=== PATIENT | female | born 1990 | race Two or more races ===

== ENCOUNTER 2024-05-24 10:47 | Emergency (ER) | payer BC, SELFPAY ==
[2024-05-24 11:14] VITALS: BP 122/79; PULSE 103; RESP 16; TEMP 36.9; O2SAT 100; BMI 28.0
--- NOTE | 2024-05-24 11:18 | XR_ITS ---
Examination: Complete OB ultrasound, less than 14 weeks, transabdominal Date and time of exam: May 24, 2024 1226 hours INDICATIONS: Vaginal discharge 3 days with lower back and pelvic pain Technique: Obstetrical ultrasound images less than 14 weeks performed via transabdominal imaging Findings: Uterus 10.6 x 4.7 x 7.3 cm anteverted Intrauterine gestational sac 1.3 cm corresponds to 6 weeks 1 day gestational age No pole, no cardiac activity Right ovary 3.6 x 1.6 x 2.4 cm arterial flow Left ovary 3.1 x 1.8 x 3.3 cm arterial flow 18 mm cyst IMPRESSION: Empty intrauterine gestational sac corresponding to 6 weeks 1 day gestational age Recommend transvaginal pelvic sonography follow-up to confirm viability
[2024-05-24 11:45] LABS: Collection Type, Urine Clean Catch
[2024-05-24 11:53] LABS: Basophils % (Auto) 0 % (0-2.5); Eosinophils # (Auto) 0.1 Thou/mm3 (0.0-0.5); Eosinophils % (Auto) 1 % (0-10); Hematocrit 29.4 % (36.0-46.0); Hemoglobin 9.7 g/dL (12.0-16.0); Immature Granulocytes % (Auto) 0 % (0-0); Immature Granulocytes Auto 0.01 Thou/mm3 (0.00-0.00); Lymphocytes # (Auto) 0.4 Thou/mm3 (1.0-4.8); Lymphocytes % (Auto) 8 % (10-50); Mean Corpuscular Hemoglobin 33.1 pg (25.0-35.0); Mean Corpuscular Volume 100 fL (80-100); Monocytes # (Auto) 0.2 Thou/mm3 (0.0-0.8); Monocytes % (Auto) 4 % (0-12); Neutrophils # (Auto) 4.9 Thou/mm3 (1.8-7.7); Neutrophils % (Auto) 87 % (37-80); Nucleated Red Blood Cell % 0 /100 WBC (0); Platelet Count 392 Thou/mm3 (140-440); RDW Standard Deviation 54.4 fL (36.4-46.3); Red Blood Count 2.93 Miln/mm3 (4.00-5.20); White Blood Count 5.7 Thou/mm3 (3.6-11.0)
[2024-05-24 12:05] LABS: Bacteria,Urine Rare; Bilirubin,Urine Negative (Negative); Blood,Urine 1+ (Negative); Clarity,Urine Clear (Clear/Hazy); Color,Urine Lt-Yellow (Lt Yel-Yel); Culture Indicated,Urine Not Indicated; Glucose, Urine Negative (Negative); Hyaline Casts,Urine < 1 /hpf (0-1); Ketones,Urine Negative (Negative); Leukocyte Esterase,Urine Positive (Negative); Nitrite,Urine Negative (Negative); Protein,Urine Negative (Neg - Trace); RBC,Urine 3 /hpf (0-3); Specific Gravity,Urine 1.015 (1.001-1.035); Squamous Epithelial Cell,Urine 3 /hpf (0-5); Urobilinogen,Urine Negative mg/dL (0.0-1.0); WBC,Urine 3 /hpf (0-5)
[2024-05-24 12:40] LABS: Alanine Aminotransferase 9 U/L (10-49); Albumin, Serum 4.8 gm/dL (3.5-5.0); Albumin/Globulin Ratio 1.5 (1.2-2.2); Alkaline Phosphatase 64 U/L (46-116); Anion Gap 6 (7-16); Aspartate Amino Transferase 11 U/L (0-34); BUN/Creatinine Ratio 19 Ratio (12-20); Beta HCG,Quantitative 8726 mIU/mL (<5.0); Bilirubin,Total 1.1 mg/dL (0.3-1.2); Blood Urea Nitrogen 13 mg/dL (9-23); Calcium 9.4 mg/dL (8.3-10.6); Calcium (Corrected) 9.4 mg/dL (8.5-10.1); Carbon Dioxide 27.9 mMol/L (20.0-31.0); Chloride 105 mMol/L (98-107); Creatinine (Component) 0.7 mg/dL (0.6-1.3); Estimated Creatinine Clearance 110.5 mL/min (>60); Globulin 3.1 gm/dL (2.3-3.5); Glucose 78 mg/dL (74-106); Osmolality,Calculated 276 (275-295); Potassium 3.8 mMol/L (3.4-5.1); Sodium 139 mMol/L (136-145); Total Protein 7.9 gm/dL (5.7-8.2); eGFR > 60 See Note
--- NOTE | 2024-05-24 13:29 | PD.EDFMALE ---
ED Female Urogenital RME/HPI General Chief complaint: Urogenital-Female Stated complaint: BROWN DISCHARGE W/ PELVIC PAIN ; 8WKS PREG Time Seen by Provider: 05/24/24 10:52 Arrival date/time: 05/24/24 10:47 33-year-old female presents emergency department complains of brown discharge and pelvic pain patient reports being approximately 8 weeks Limitations: no limitations Related Data Previous Rx's ?Medication ?Instructions ?Recorded ibuprofen 600 mg tablet (IBU) 600 mg PO TID PRN pain #30 tabs 01/04/18 acetaminophen 500 mg tablet 500 mg PO Q6H PRN pain #60 tabs 09/22/21 (Tylenol Extra Strength) Allergies Allergy/AdvReac Type Severity Reaction Status Date / Time No Known Allergies Allergy Verified 05/24/24 10:50 Review of Systems Review of Systems Systems Reviewed: All systems reviewed, normal except as documented Constitutional Constitutional: Reports system reviewed and no additional complaints, except as documented, Denies fever(s) and Denies headache(s) Eyes Eyes: Reports system reviewed and no additional complaints, except as documented and Denies blurry vision ENT Ears, Nose, Mouth, and Throat: Reports system reviewed and no additional complaints, except as documented, Denies headache(s), Denies nasal congestion and Denies nasal discharge Cardiovascular Cardiovascular: Reports system reviewed and no additional complaints, except as documented, Denies chest pain and Denies dyspnea Respiratory Respiratory: Reports system reviewed and no additional complaints, except as documented, Denies chest congestion, Denies cough and Denies dyspnea Gastrointestinal Gastrointestinal: Reports system reviewed and no additional complaints, except as documented and Denies abdominal pain Genitourinary Genitourinary: Reports system reviewed and no additional complaints, except as documented and Reports abnormal vaginal bleeding Integumentary/Breasts Skin/Breast: Reports system reviewed and no additional complaints, except as documented and Denies rash Neurologic Neurologic: Reports system reviewed and no additional complaints, except as documented, Reports as per HPI and Denies headache(s) Past Medical History Past Medical History NEUROLOGIC: Negative Neurological Disorders CARDIAC: Negative Cardiac Disorders ED Exam General Limitations: Present no limitations General appearance: Present alert and in no apparent distress Head Head exam: Present atraumatic, normocephalic and normal inspection Eye Eye exam: Present normal appearance, PERRL and EOMI; Absent conjunctival injection ENT ENT exam: Present normal exam, normal oropharynx and mucous membranes moist Neck Neck exam: Present normal inspection, full ROM and trachea midline Chest Chest inspection: Present normal inspection and symmetric chest wall rise Respiratory Respiratory exam: Present normal lung sounds bilaterally; Absent respiratory distress Cardiovascular Cardiovascular exam: Present regular rate, normal rhythm and normal heart sounds Abdominal Exam Abdominal exam: Present soft and normal bowel sounds; Absent distention, tenderness, guarding, rebound or rigidity Extremities Exam Extremities exam: Present normal inspection and full ROM Back Exam Back exam: Present normal inspection and full ROM Neurological Exam Neurological exam: Present alert, oriented X3 and CN II-XII intact Psychiatric Psychiatric exam: Present normal affect and normal mood Skin Skin exam: Present warm, dry, intact and normal color Course Quality Measures none Orders Category Date Time Status US OB <= 14 weeks fetus Stat Exams 05/24/24 11:18 Completed ABO/RH Type Stat Lab 05/24/24 11:35 Completed Beta HCG,Quantitative Stat Lab 05/24/24 11:35 Completed CBC Stat Lab 05/24/24 11:35 Completed Chlamydia/GC/TV - PCR Stat Lab 05/24/24 11:35 Completed Comprehensive Metabolic Panel Stat Lab 05/24/24 11:35 Completed UA, C/S IF [Urinalysis, C/S if Indicated] Stat Lab 05/24/24 11:35 Completed Vital Signs Vital signs: Vital Signs Temperature 98.4 F 05/24/24 11:14 Pulse Rate 103 H 05/24/24 11:14 Respiratory Rate 16 05/24/24 11:14 Blood Pressure 122/79 05/24/24 11:14 Pulse Oximetry (%) 100 05/24/24 11:14 Oxygen Delivery Method Room Air 05/24/24 11:14 O2 saturation 100% room air within normal limits Urogenital - Female MDM Narrative MDM Narrative:: 33-year-old female presents emergency department complains of brown discharge and pelvic pain patient reports being approximately 8 weeks On exam patient well-appearing patient does not appear ill or toxic and in no acute distress Lab work as well as ultrasound obtained Explained to the patient she needs to have repeat ultrasound and lab work on Tuesday for worsening symptoms return immediately Patient data External records reviewed:: [facility] previous records Clinical information provided by:: patient Social determinants that could affect healthcare access:: none Patient has the following chronic illnesses:: None How is presenting disease/condition affected by chronic disease/condition?: no chronic disease Evaluation data The following diagnostics were reviewed and interpreted by me:: lab results and radiology exam(s) Lab and/or radiology exams considered but not ordered:: Labs radiology obtain Interpretation Summary: Reviewed by me Medications / Prescriptions Medications or Prescriptions considered but not ordered:: Given Medication administrations:: Given Consultations Consultation(s) initiated? (list below): No Diagnosis Urogenital Female Differential Diagnosis: urinary tract infection, cystitis and other (Threatened , missed ) Most likely diagnosis given after review of the tests above:: Threatened Admission Indicated Admission indicated?: not indicated Admission Request Was there a request for admission?: No Disposition Plan Disposition Plan: Discharge Discharge Attestation Discharge Attestation: The patient and all family members were given an opportunity to ask questions and understood the discharge instructions. Discharge instructions specifically effects, indications for sooner follow up or return to the emergency department, and the expected course of current diagnosis. Patient condition: Stable Discharge Plan Plan Patient Disposition: HOME (Self Care) Disposition Comment: Stable Prescriptions/Referrals Prescriptions/Med Rec: No Action ibuprofen [IBU] 600 mg tablet 600 mg PO TID PRN (Reason: pain) Qty: 30 0RF acetaminophen [Tylenol Extra Strength] 500 mg tablet 500 mg PO Q6H PRN (Reason: pain) Qty: 60 0RF Referrals: Diana Franklin CNM [Primary Care Provider] - In 1 week Problem List Clinical Impression: , threatened Patient/Caregiver Discharge Instructions Education Materials: ED Possible Miscarriage ... Additional Instructions: Please return on Tuesday for repeat lab work and ultrasound for worsening symptoms return immediately Print Language: Bhutanese Stand Alone Forms: Nhung Award Info., Work/School Release, Patient Portal Info Letter PA/COMMODITY MANAGEMENT SPECIALIST Supervising Physician PA/COMMODITY MANAGEMENT SPECIALIST Supervising Physician: Dr. Masterson
[2024-05-24 15:39] LABS: Chlamydia trachomatis PCR Negative (Not Detect); Neisseria Gonorrhoeae DNA PCR Negative (Not Detect); Trichomonas Negative (Negative)
== END 2024-05-24 14:12 | disposition home or self-care (01) ==
PROVIDERS: Nurse Practitioner Primary Care; Emergency Provider Emergency Medicine; PCP Advanced Practice Midwife
DX: O03.9 Complete or unspecified spontaneous abortion without complication (principal)
CPT/HCPCS: 36415; 76801; 80053; 81001; 84702; 85025; 86900; 86901; 87491; 87591; 87661; 99284

== ENCOUNTER 2024-05-27 13:53 | Emergency (ER) | payer OTHER, SELFPAY ==
[2024-05-27 13:54] VITALS: BMI 26.6
[2024-05-27 14:35] VITALS: BP 108/74; PULSE 105; RESP 16; TEMP 36.7; O2SAT 100
--- NOTE | 2024-05-27 14:47 | PD.EDRME ---
Rapid Medical Screening Exam RME Arrival date/time: 05/27/24 13:53 This is a 33-year-old female that comes in with complaints of vaginal bleeding and abdominal pain. Patient states that she is approximately 9 weeks . Patient's last menstrual period was March 23. Patient states she was seen here couple days ago and they were not able to detect a heartbeat. Patient is a 2 para 1. I have greeted and performed a focused initial assessment of this patient. Initial appropriate labs ordered at this time. A comprehensive ED assessment and evaluation of the patient and analysis of all test and completion of medical decision making process will be conducted by additional ED provider. Chief Complaint: Urogenital-Female Time Seen by Provider: 05/27/24 14:34 Vital signs: Vital Signs Temperature 98.1 F 05/27/24 14:35 Pulse Rate 105 H 05/27/24 14:35 Respiratory Rate 16 05/27/24 14:35 Blood Pressure 108/74 05/27/24 14:35 Pulse Oximetry (%) 100 05/27/24 14:35 Oxygen Delivery Method Room Air 05/27/24 14:35
--- NOTE | 2024-05-27 14:53 | XR_ITS ---
Examination: Complete OB ultrasound, less than 14 weeks, transabdominal Date and time of exam: May 27, 2024 1600 hrs. Indications: Onset vaginal bleeding and pelvic cramping beginning 2 days ago, pelvic sonogram May 24, 2024 empty intrauterine gestational sac corresponding to 6 weeks 1 day gestational age, no pole, no cardiac activity Technique: Obstetrical ultrasound images less than 14 weeks performed via transabdominal imaging Findings: Uterus 10.2 x 4.1 x 6.0 cm No intrauterine gestational sac currently depicted Endometrial stripe 0.4 cm Right ovary 3.4 x 1.3 x 2.6 cm arterial flow Left ovary 3.1 x 1.6 x 2.5 cm arterial flow Impression: Findings consistent with completed spontaneous
[2024-05-27 15:26] LABS: Basophils % (Auto) 0 % (0-2.5); Eosinophils % (Auto) 0 % (0-10); Hemoglobin 9.5 g/dL (12.0-16.0); Immature Granulocytes % (Auto) 0 % (0-0); Immature Granulocytes Auto 0.03 Thou/mm3 (0.00-0.00); Lymphocytes # (Auto) 0.4 Thou/mm3 (1.0-4.8); Lymphocytes % (Auto) 3 % (10-50); Mean Corpuscular HGB Conc 32.8 g/dl (31.0-37.0); Mean Corpuscular Hemoglobin 33.5 pg (25.0-35.0); Mean Corpuscular Volume 102 fL (80-100); Monocytes # (Auto) 0.4 Thou/mm3 (0.0-0.8); Monocytes % (Auto) 3 % (0-12); Neutrophils # (Auto) 11.3 Thou/mm3 (1.8-7.7); Neutrophils % (Auto) 93 % (37-80); Nucleated Red Blood Cell % 0 /100 WBC (0); Platelet Count 398 Thou/mm3 (140-440); RDW Standard Deviation 53.7 fL (36.4-46.3); Red Blood Count 2.84 Miln/mm3 (4.00-5.20); White Blood Count 12.1 Thou/mm3 (3.6-11.0)
[2024-05-27 15:57] LABS: Collection Type, Urine Voided
[2024-05-27 16:02] LABS: Alanine Aminotransferase 9 U/L (10-49); Albumin, Serum 4.8 gm/dL (3.5-5.0); Albumin/Globulin Ratio 1.5 (1.2-2.2); Alkaline Phosphatase 62 U/L (46-116); Anion Gap 8 (7-16); Aspartate Amino Transferase 12 U/L (0-34); BUN/Creatinine Ratio 14 Ratio (12-20); Beta HCG,Quantitative 4800 mIU/mL (<5.0); Bilirubin,Total 1.4 mg/dL (0.3-1.2); Blood Urea Nitrogen 10 mg/dL (9-23); Calcium 9.3 mg/dL (8.3-10.6); Calcium (Corrected) 9.3 mg/dL (8.5-10.1); Carbon Dioxide 24.8 mMol/L (20.0-31.0); Chloride 104 mMol/L (98-107); Creatinine (Component) 0.7 mg/dL (0.6-1.3); Estimated Creatinine Clearance 116.2 mL/min (>60); Globulin 3.1 gm/dL (2.3-3.5); Glucose 101 mg/dL (74-106); Lipase 38 U/L (12-53); Osmolality,Calculated 272 (275-295); Potassium 3.9 mMol/L (3.4-5.1); Sodium 137 mMol/L (136-145); Total Protein 7.9 gm/dL (5.7-8.2); eGFR > 60 See Note
[2024-05-27 16:21] LABS: Bilirubin,Urine Negative (Negative); Blood,Urine 3+ (Negative); Color,Urine Yellow (Lt Yel-Yel); Culture Indicated,Urine Not Indicated; Glucose, Urine Negative (Negative); Ketones,Urine Negative (Negative); Leukocyte Esterase,Urine Positive (Negative); Nitrite,Urine Negative (Negative); PH,Urine 6.5 (5.0-7.0); Protein,Urine 1+ (Neg - Trace); RBC,Urine 333 /hpf (0-3); Squamous Epithelial Cell,Urine 2 /hpf (0-5); WBC,Urine 6 /hpf (0-5)
[2024-05-27 16:26] LABS: Clarity,Urine Hazy (Clear/Hazy)
[2024-05-27 16:46] VITALS: BP 127/67; PULSE 92; RESP 16; TEMP 36.8; O2SAT 100
--- NOTE | 2024-05-27 17:20 | PC.NURSE ---
Patient ambulated to bathroom and RN was called as patient expelled tissue and clot into toilet.
--- NOTE | 2024-05-27 17:34 | EDNOTE_ITS ---
ED General RME/HPI General Chief complaint: Urogenital-Female Stated complaint: PELVIC PAIN/BROWN DISCHARGE x 1 DAY, + PREG Time Seen by Provider: 05/27/24 14:34 Arrival date/time: 05/27/24 13:53 CC: Vaginal bleeding HPI at estimated 6 weeks with onset of vaginal bleeding and low center abdominal cramping yesterday afternoon initially with just wiping and then approximately 30 minutes ago patient passed a large clot. Patient denies fever chills back pain nausea or vomiting. RME / HPI RME / HPI narrative: 05/27/24 13:53 This is a 33-year-old female that comes in with complaints of vaginal bleeding and abdominal pain. Patient states that she is approximately 9 weeks . Patient's last menstrual period was March 23. Patient states she was seen here couple days ago and they were not able to detect a heartbeat. Patient is a 2 para 1. I have greeted and performed a focused initial assessment of this patient. Initial appropriate labs ordered at this time. A comprehensive ED assessment and evaluation of the patient and analysis of all test and completion of medical decision making process will be conducted by additional ED provider. Related Data Previous Rx's ?Medication ?Instructions ?Recorded ibuprofen 600 mg tablet (IBU) 600 mg PO TID PRN pain #30 tabs 01/04/18 acetaminophen 500 mg tablet 500 mg PO Q6H PRN pain #60 tabs 09/22/21 (Tylenol Extra Strength) Allergies Allergy/AdvReac Type Severity Reaction Status Date / Time No Known Allergies Allergy Verified 05/27/24 13:56 Review of Systems Review of Systems Narrative Review of Systems: GEN: No fever, no chills, no weight loss EYES: No discharge, no visual changes, no pain HEENT: No ear pain, no congestion, no sore throat PULM: No shortness of breath, no cough, no congestion CV: No chest pain, no dyspnea on exertion, no palpitations GI: No nausea, no vomiting, no diarrhea, no pain, no constipation : No frequency, no urgency, no dysuria MUSC/SKEL: No joint pain, no back pain SKIN: No rash PSYCH: No hallucinations, no depression HEME/LYMPH: No easy bleeding or bruising tendencies NEURO: No weakness, no headache Past Medical History Past Medical History NEUROLOGIC: Negative Neurological Disorders CARDIAC: Negative Cardiac Disorders, Myocardial Infarction, Cardiac Arrhythmia, Atrial Fibrillation, Angina, Heart Murmur, Coronary Artery Disease, Atherosclerotic Heart Disease, Hypercholesterolemia, Aneurysm, Congestive Heart Failure, Congenital Heart Disease, Cardiomyopathy, Deep Vein Thrombosis, Hypertension or Hypotension RESPIRATORY: Negative Chronic Obstructive Pulmonary Disease (COPD) GASTROINTESTINAL: Negative Gastrointestinal Disorders GENITOURINARY: Negative Genitourinary Disorders or Renal Disease REPRODUCTIVE: Negative Pelvic Inflammatory Disease MUSCULOSKELETAL: Negative Musculoskeletal Disorders ENDOCRINE: Negative Endocrine Disorders, Diabetes Mellitus Type 1 or Diabetes Mellitus Type 2 HEMATOLOGIC: Negative Blood Disorders OTHER HISTORY: Negative Autoimmune Disease, Blood Transfusions, Blood Transfusion Reaction, Anesthesia Reactions, Organ Transplant, Chemotherapy, Radiation Therapy, Hyperbaric Therapy, MRSA, VRSA, Vancomycin-Resistant Enterococci, Clostridium Difficile or Cancer Family History FAMILY HISTORY: Negative Family Psychiatric Problems, Family Respiratory Disorders, Family Cardiac Disorders, Family Gastrointestinal Problems, Family Cancer, Family Surgery or Family Anesthesia Reaction Surgical History SURGICAL: Negative Cardiac Surgery, Endocrine Surgery, Ear Surgery, Abdominal Surgery, Nephrectomy, Joint Replacement, Neurologic Surgery, Mastectomy, Lumpectomy, Hysterectomy, Tubal Ligation, Section or Organ Transplant Social History SMOKING STATUS: Never smoker SECOND HAND EXPOSURE: No ED Exam Narrative Physical exam: [General: Not in any acute distress Head normocephalic HEENT: Within acceptable limits Neck is supple nontender Chest equal chest rise nontender to palpation Respiratory: Clear to auscultation no wheezes crackles or rubs CV: Rate rhythm is regular no murmurs rubs or clicks Abdomen is soft nontender no masses positive bowel sounds all 4 quadrants Back: No CVA tenderness no spinous process tenderness from cervical spine thoracic and lumbar spine Skin: Intact no petechiae rash induration ulceration or crepitus Extremities: Moving all extremity against resistance cap refill less than 2 seconds neurosensory intact Neuro: Awake alert oriented x3 Glascow coma 15 no focal deficits] Course Quality Measures none Orders Category Date Time Status US OB <= 14 weeks fetus Stat Exams 05/27/24 14:53 Completed ABO/RH Type Stat Lab 05/27/24 17:09 Completed Beta HCG,Quantitative Stat Lab 05/27/24 15:15 Completed CBC Stat Lab 05/27/24 15:15 Completed Comprehensive Metabolic Panel Stat Lab 05/27/24 15:15 Completed Lipase Stat Lab 05/27/24 15:15 Completed Urinalysis, C/S if Indicated Stat Lab 05/27/24 15:27 Completed Vital Signs Vital signs: Vital Signs Temperature 98.1 F 05/27/24 14:35 Pulse Rate 105 H 05/27/24 14:35 Respiratory Rate 16 05/27/24 14:35 Blood Pressure 108/74 05/27/24 14:35 Pulse Oximetry (%) 100 05/27/24 14:35 Oxygen Delivery Method Room Air 05/27/24 14:35 [facility] Patient data External records reviewed:: [facility] previous records Clinical information provided by:: patient and spouse Social determinants that could affect healthcare access:: none Patient has the following chronic illnesses:: None How is presenting disease/condition affected by chronic disease/condition?: u neffected by Evaluation data The following diagnostics were reviewed and interpreted by me:: lab results and radiology exam(s) Lab and/or radiology exams considered but not ordered:: CBC shows a leukocytosis of 12.5 H&H of 9 and 29, no thrombocytopenia C MP shows no significant electrolyte imbalances renal impairment transaminitis or T. bili elevation Quantitative hCG is 4800 Urine is negative for UTI positive for blood. Ultrasound shows empty uterus suggestive of a spontaneous miscarriage. ABO Rh is B+. Interpretation Summary: Spontaneous miscarriage Medications Medications considered but not ordered:: None Medication administrations:: None Consultations Consultation(s) initiated? (list below): No Diagnosis Differential Diagnosis ED Complaint MDM: Ectopic first trimester vaginal bleeding miscarriage Most likely diagnosis given after review of the tests above:: Spontaneous miscarriage Admission Indicated Admission indicated?: not indicated Explain why admission is indicated or not indicated:: Stable for outpatient follow-up Admission Request Was there a request for admission?: No Disposition Plan Disposition Plan: Discharge Discharge Attestation Discharge Attestation: The patient and all family members were given an opportunity to ask questions and understood the discharge instructions. Discharge instructions specifically effects, indications for sooner follow up or return to the emergency department, and the expected course of current diagnosis. Patient condition: Stable Medical Decision Making Differential Diagnosis Differential Diagnosis: Ectopic first trimester vaginal bleeding miscarriage Lab Data 05/27/24 15:15 05/27/24 15:15 Labs: Lab Results 05/27/24 05/27/24 05/27/24 Range/Units 15:15 15:27 17:09 WBC 12.1 H D (3.6-11.0) Thou/mm3 RBC 2.84 L (4.00-5.20) Miln/mm3 Hgb 9.5 L (12.0-16.0) g/dL Hct 29.0 L (36.0-46.0) % MCV 102 H (80-100) fL MCH 33.5 (25.0-35.0) pg MCHC 32.8 (31.0-37.0) g/dl RDW Std Deviation 53.7 H (36.4-46.3) fL Plt Count 398 (140-440) Thou/mm3 Neut % (Auto) 93 H (37-80) % Lymph % (Auto) 3 L (10-50) % Mcpherson % (Auto) 3 (0-12) % Eos % (Auto) 0 (0-10) % Baso % (Auto) 0 (0-2.5) % Neut # (Auto) 11.3 H (1.8-7.7) Thou/mm3 Lymph # (Auto) 0.4 L (1.0-4.8) Thou/mm3 Mcpherson # (Auto) 0.4 (0.0-0.8) Thou/mm3 Eos # (Auto) 0.0 (0.0-0.5) Thou/mm3 Baso # (Auto) 0.0 (0.0-0.2) Thou/mm3 Immature Gran # (Auto) 0.03 H (0.00-0.00) Thou/mm3 Absolute Nucleated RBC 0.00 (0.00-0.00) Thou/mm3 Immature Gran % 0 (0-0) % Nucleated RBC % 0 (0) /100 WBC Sodium 137 (136-145) mMol/L Potassium 3.9 (3.4-5.1) mMol/L Chloride 104 (98-107) mMol/L Carbon Dioxide 24.8 (20.0-31.0) mMol/L Anion Gap 8 (7-16) BUN 10 (9-23) mg/dL Creatinine 0.7 (0.6-1.3) mg/dL Estim Creat Clear Calc 116.2 (>60) mL/min eGFR > 60 (60 - ) See Note BUN/Creatinine Ratio 14 (12-20) Ratio Glucose 101 (74-106) mg/dL Calculated Osmolality 272 L (275-295) Calcium 9.3 (8.3-10.6) mg/dL Corrected Calcium 9.3 (8.5-10.1) mg/dL Total Bilirubin 1.4 H (0.3-1.2) mg/dL AST 12 (0-34) U/L ALT 9 L (10-49) U/L Alkaline Phosphatase 62 (46-116) U/L Total Protein 7.9 (5.7-8.2) gm/dL Albumin 4.8 (3.5-5.0) gm/dL Globulin 3.1 (2.3-3.5) gm/dL Albumin/Globulin Ratio 1.5 (1.2-2.2) Lipase 38 (12-53) U/L Beta HCG, Quant 4800 (<5.0) mIU/mL Ur Collection Type Voided Urine Color Yellow (Lt Yel-Yel) Urine Clarity Hazy (Clear/Hazy) Urine pH 6.5 (5.0-7.0) Ur Specific [place] 1.030 (1.001-1.035) Urine Protein 1+ A (Neg - Trace) Urine Glucose (UA) Negative (Negative) Urine Ketones Negative (Negative) Urine Blood 3+ A (Negative) Urine Nitrite Negative (Negative) Urine Bilirubin Negative (Negative) Urine Urobilinogen (Auto) 4.0 (0.0-1.0) mg/dL Ur Leukocyte Esterase Positive (Negative) Urine RBC 333 H (0-3) /hpf Urine WBC 6 H (0-5) /hpf Ur Squamous Epith Cells 2 (0-5) /hpf Urine Bacteria None (None) Ur Culture Indicated? Not Indicated Blood Type B Positive Blood Bank Wristband ID Yes Discharge Plan Plan Patient Disposition: HOME (Self Care) Patient condition on transfer: Stable Prescriptions/Referrals Prescriptions/Med Rec: No Action ibuprofen [IBU] 600 mg tablet 600 mg PO TID PRN (Reason: pain) Qty: 30 0RF acetaminophen [Tylenol Extra Strength] 500 mg tablet 500 mg PO Q6H PRN (Reason: pain) Qty: 60 0RF Referrals: Harris Lance MD [Primary Care Provider] - In 1 week Problem List Clinical Impression: Complete miscarriage Patient/Caregiver Discharge Instructions Other Activity Instructions:: Your hCG is 4800 today, please follow-up with your SEPARATING MACHINE OPERATOR in 4 to 5 days for recheck of the quantitative hCG to make sure it is downtrending to 0. If you spike a high fever with heavy vaginal bleeding return to the emergency room for reevaluation. Education Materials: Miscarriage Trying Again, ED MISCARRIAGE Completed Print Language: Beninese Stand Alone Forms: Nhung Award Info., Work/School Release, Patient Portal Info Letter PA/AIRSET MOLDER Supervising Physician PA/AIRSET MOLDER Supervising Physician: Vish Cochran ENP
[2024-05-27 18:13] VITALS: BP 103/64; PULSE 94; RESP 16; TEMP 36.8; O2SAT 100
[2024-05-27 19:14] VITALS: BP 109/71; PULSE 101; RESP 17; O2SAT 100
== END 2024-05-27 19:13 | disposition home or self-care (01) ==
PROVIDERS: Nurse Practitioner Family; Emergency Provider Emergency Medicine; PCP Family Medicine
DX: O03.9 Complete or unspecified spontaneous abortion without complication (principal)
CPT/HCPCS: 36415; 76801; 80053; 81001; 83690; 84702; 85025; 86900; 86901; 99284

== ENCOUNTER 2024-09-29 19:09 | Emergency (ER) | payer OTHER, SELFPAY ==
[2024-09-29 19:09] VITALS: BMI 25.7
[2024-09-29 19:32] VITALS: BP 122/69; PULSE 102; RESP 18; TEMP 36.8; O2SAT 97
--- NOTE | 2024-09-29 19:36 | EDNOTE_ITS ---
ED OB Contraction Preg RMI/HPI General Chief complaint: Urogenital-Female Stated complaint: VAGINAL BLEEDING Time Seen by Provider: 09/29/24 19:12 Source: patient, RN notes reviewed and old records reviewed Arrival date/time: 09/29/24 19:09 Mode of arrival: ambulatory Limitations: no limitations RME / HPI RME / HPI Narrative: 34yof approx 5 weeks gestation presents to ED for vaginal spotting that started today. Positive home test earlier this week. Patient c/o mild pelvic cramping radiating to generalized lower back. No fever, vomiting or urinary symptoms reported. 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 Previous Rx's ?Medication ?Instructions ?Recorded ibuprofen 600 mg tablet (IBU) 600 mg PO TID PRN pain # 30 tabs 01/04/18 acetaminophen 500 mg tablet 500 mg PO Q6H PRN pain #60 tabs 09/22/21 (Tylenol Extra Strength) Allergies Allergy/AdvReac Type Severity Reaction Status Date / Time No Known Allergies Allergy Verified 05/27/24 13:56 Review of Systems Review of Systems Systems Reviewed: All systems reviewed, normal except as documented Constitutional Constitutional: Denies chills and Denies fever(s) Gastrointestinal Gastrointestinal: Denies nausea and Denies vomiting Genitourinary Genitourinary: Reports abnormal vaginal bleeding and Denies dysuria Musculoskeletal Musculoskeletal: Reports back pain Past Medical History Surgical History OTHER SURGICAL HX: Denies past surgical history Social History SMOKING STATUS: Never smoker SUBSTANCE USE: does not use ALCOHOL: Never Past Medical History Comments PMH COMMENT: Denies past medical history ED Exam General Limitations: Present no limitations General appearance: Present alert and in no apparent distress Head Head exam: Present atraumatic and normocephalic Eye Eye exam: Present normal appearance, PERRL and EOMI ENT ENT exam: Present normal exam and mucous membranes moist Neck Neck exam: Present normal inspection and full ROM Chest Chest inspection: Present normal inspection and symmetric chest wall rise Respiratory Respiratory exam: Present normal lung sounds bilaterally; Absent respiratory distress Cardiovascular Cardiovascular exam: Present regular rate and normal rhythm Abdominal Exam Abdominal exam: Present soft; Absent distention, tenderness, guarding or rebound Extremities Exam Extremities exam: Present normal inspection and full ROM Back Exam Back exam: Absent CVA tenderness (R) or CVA tenderness (L) Neurological Exam Neurological exam: Present alert and oriented X3 Psychiatric Psychiatric exam: Present normal affect and normal mood Skin Skin exam: Present warm, dry, intact and normal color Course Quality Measures none Orders Category Date Time Status US OB transvaginal Stat Exams 09/29/24 19:38 Completed Beta HCG,Quantitative Stat Lab 09/29/24 19:46 Completed CBC Stat Lab 09/29/24 19:46 Completed CMP [Comprehensive Metabolic Panel] Stat Lab 09/29/24 19:46 Completed UA [Urinalysis] Stat Lab 09/29/24 19:57 Completed Vital Signs Vital signs: Vital Signs Temperature 98.2 F 09/29/24 19:32 Pulse Rate 102 H 09/29/24 19:32 Respiratory Rate 18 09/29/24 19:32 Blood Pressure 122/69 09/29/24 19:32 Pulse Oximetry (%) 97 09/29/24 19:32 Oxygen Delivery Method Room Air 09/29/24 19:32 Vaginal Bleeding MDM Narrative MDM Narrative: 34yof approx 5 weeks gestation presents to ED for vaginal spotting that started today. Positive home test earlier this week. Patient c/o mild pelvic cramping radiating to generalized lower back. No fever, vomiting or urinary symptoms reported. 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 Encouraged close follow-up with ob. Stable for discharge, RTED precautions given. Patient data External records reviewed:: [facility] previous records (05/27/2024 ED visit for miscarriage) Clinical information provided by:: patient Social determinants that could affect healthcare access:: none Patient has the following chronic illnesses:: None How is presenting disease/condition affected by chronic disease/condition?: no chronic disease Evaluation data The following diagnostics were reviewed and interpreted by me:: lab results and radiology exam(s) Lab and/or radiology exams considered but not ordered:: none Interpretation Summary: Hemoglobin stable 11.2 hcg quant 429 UA +leuks, suspect contaminant. Minimal wbcs Ob ultrasound: No IUP per my read Medications / Prescriptions Medications or Prescriptions considered but not ordered:: No antibiotics recommended at this time Medication administrations:: None Consultations Consultation(s) initiated? (list below): No Diagnosis Vaginal Bleeding Differential Diagnosis: missed , threatened , dysfunctional uterine bleeding, incomplete and ectopic without intrauterine Most likely diagnosis given after review of the tests above:: Threatened miscarriage Admission Indicated Admission indicated?: not indicated Admission Request Was there a request for admission?: No Disposition Plan Disposition Plan: Discharge Discharge Attestation Discharge Attestation: The patient and all family members were given an opportunity to ask questions and understood the discharge instructions. Discharge instructions specifically effects, indications for sooner follow up or return to the emergency department, and the expected course of current diagnosis. Patient condition: Stable Discharge Plan Plan Patient Disposition: HOME (Self Care) Patient condition on transfer: Stable Prescriptions/Referrals Prescriptions/Med Rec: No Action ibuprofen [IBU] 600 mg tablet 600 mg PO TID PRN (Reason: pain) Qty: 30 0RF acetaminophen [Tylenol Extra Strength] 500 mg tablet 500 mg PO Q6H PRN (Reason: pain) Qty: 60 0RF Referrals: Harris Lance MD [Primary Care Provider] - In 1 week Problem List Clinical Impression: Threatened miscarriage in early Patient/Caregiver Discharge Instructions Education Materials: ED Possible Miscarriage ... Additional Instructions: Your hcg was 429 today. Please follow-up with your OB in the following week for an hCG recheck. Print Language: Estonian Stand Alone Forms: Nhung Award Info., Patient Portal Info Letter PA/AQUATIC LABORER Supervising Physician JAUN/CHANTELLE Supervising Physician: Bradley
--- NOTE | 2024-09-29 19:38 | XR_ITS ---
Examination: OB Transvaginal ultrasound of the pelvis, complete Technique: Transvaginal sonographic images pelvis performed using pollack scale imaging Exam date and time: September 29, 20242032 hours INDICATIONS: Lower pelvic pain and back pain and vaginal bleeding today FINDINGS: Uterus 9.3 cm with thickened heterogeneous endometrial stripe 15 mm No intrauterine gestation No discrete uterine mass Right ovary 2.4 cm arterial flow Left ovary 2.7 cm arterial flow IMPRESSION:: Findings consistent with retained products of conception .
[2024-09-29 19:58] LABS: Basophils % (Auto) 0 % (0-2.5); Eosinophils # (Auto) 0.1 Thou/mm3 (0.0-0.5); Eosinophils % (Auto) 2 % (0-10); Hematocrit 32.5 % (36.0-46.0); Hemoglobin 11.2 g/dL (12.0-16.0); Immature Granulocytes % (Auto) 0 % (0-0); Immature Granulocytes Auto 0.01 Thou/mm3 (0.00-0.00); Lymphocytes # (Auto) 0.6 Thou/mm3 (1.0-4.8); Lymphocytes % (Auto) 10 % (10-50); Mean Corpuscular HGB Conc 34.5 g/dl (31.0-37.0); Mean Corpuscular Hemoglobin 34.4 pg (25.0-35.0); Mean Corpuscular Volume 100 fL (80-100); Monocytes # (Auto) 0.4 Thou/mm3 (0.0-0.8); Monocytes % (Auto) 6 % (0-12); Neutrophils # (Auto) 5.1 Thou/mm3 (1.8-7.7); Neutrophils % (Auto) 82 % (37-80); Nucleated Red Blood Cell % 0 /100 WBC (0); Platelet Count 322 Thou/mm3 (140-440); RDW Standard Deviation 45.9 fL (36.4-46.3); Red Blood Count 3.26 Miln/mm3 (4.00-5.20); White Blood Count 6.2 Thou/mm3 (3.6-11.0)
[2024-09-29 20:09] LABS: Collection Type, Urine Clean Catch
[2024-09-29 20:19] LABS: Bacteria,Urine 1+; Bilirubin,Urine Negative (Negative); Blood,Urine 2+ (Negative); Clarity,Urine Clear (Clear/Hazy); Color,Urine Lt-Yellow (Lt Yel-Yel); Glucose, Urine Negative (Negative); Ketones,Urine Negative (Negative); Leukocyte Esterase,Urine Positive (Negative); Nitrite,Urine Negative (Negative); Protein,Urine Negative (Neg - Trace); RBC,Urine 19 /hpf (0-3); Specific Gravity,Urine 1.016 (1.001-1.035); Squamous Epithelial Cell,Urine 4 /hpf (0-5); WBC,Urine 12 /hpf (0-5)
[2024-09-29 20:20] LABS: Beta HCG,Quantitative 429 mIU/mL (<5.0)
[2024-09-29 20:21] LABS: Alanine Aminotransferase < 7 U/L (10-49); Albumin, Serum 4.7 gm/dL (3.5-5.0); Albumin/Globulin Ratio 1.8 (1.2-2.2); Alkaline Phosphatase 56 U/L (46-116); Anion Gap 6 (7-16); Aspartate Amino Transferase 12 U/L (0-34); BUN/Creatinine Ratio 9 Ratio (12-20); Bilirubin,Total 1.3 mg/dL (0.3-1.2); Blood Urea Nitrogen 9 mg/dL (9-23); Calcium 9.3 mg/dL (8.3-10.6); Calcium (Corrected) 9.3 mg/dL (8.5-10.1); Carbon Dioxide 26.7 mMol/L (20.0-31.0); Chloride 105 mMol/L (98-107); Estimated Creatinine Clearance 76.5 mL/min (>60); Globulin 2.6 gm/dL (2.3-3.5); Glucose 126 mg/dL (74-106); Osmolality,Calculated 276 (275-295); Potassium 3.6 mMol/L (3.4-5.1); Sodium 138 mMol/L (136-145); Total Protein 7.3 gm/dL (5.7-8.2); eGFR > 60 See Note
== END 2024-09-29 22:07 | disposition home or self-care (01) ==
PROVIDERS: Physician Assistant; Emergency Provider Emergency Medicine; PCP Family Medicine
DX: O20.0 Threatened abortion (principal); Z3A.01 Less than 8 weeks gestation of pregnancy
CPT/HCPCS: 36415; 76817; 80053; 81001; 84702; 85025; 99284

== ENCOUNTER 2024-10-16 09:47 | Outpatient (AMB) | payer OTHER, SELFPAY ==
--- NOTE | 2024-10-16 10:05 | GYNCLNT_ITS ---
Vital Signs 10/16/24 10:10 Height 1.6 m Height Method Stated Weight 72.178 kg Weight Measurement Method Standing Scale BMI 28.1 BP 115/77 Blood Pressure Source Automatic Cuff Blood Pressure Location Right Upper Arm Position Sitting Respiration 17 Pulse 84 Pulse Source Monitor Temp 97.9 F Temp Source Temporal Artery Scan Pulse Oximetry (%) 99 Oxygen Delivery Method Room Air Allergies/Home Meds Allergies & Medications Allergies No Known Allergies Allergy (Verified 10/16/24 10:11) Medication Reconciliation ibuprofen 600 mg tablet (IBU) 600 mg PO TID PRN pain #30 tabs 01/04/18 [Rx Con firmed 10/16/24] acetaminophen 500 mg tablet (Tylenol Extra Strength) 500 mg PO Q6H PRN pain #60 tabs 09/22/21 [Rx Confirmed 10/16/24] Intake Visit Data Collection New Patient or Established: Established Patient (seen at [facility] within 3 years) Reason for Visit:: MISCARRIAGE Seen by Clinical Staff ONLY (RN/MA): No Sales Record Clerk Required: No Do You Feel Safe at Home: Yes Authorities Contacted: N/A PCP or OBGYN visit in last 3 months: Yes Date of Last PCP or OBGYN visit: 09/29/24 Hx Now: No Are you currently on any form of Control: No Pain Present Currently: No Pain Scale Used: Prasad-Thompson/Numerical Pain scale:: 0 Smoking Status Smoking Status: Never smoker Reference Services Head history Reference Services Head History Menstrual regularity: regular Flow: normal Monthly: Yes How many days does period last: 5 Age at menarche: 15 Menopausal: No Currently 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 1. Little interest or pleasure in doing things: not at all 2. Feeling down, depressed, or hopeless: not at all Total score: 0 PHQ-9 3. Trouble falling or staying asleep, or sleeping too much: Not at all 4. Feeling tired or having little energy: Not at all 5. Poor appetite or overeating: Not at all 6. Feeling bad about yourself - or that you are a failure or have let yourself or your family down: Not at all 7. Trouble concentrating on things, such as reading the newspaper or watching television: Not at all 8. Moving or speaking so slowly that other people could have noticed? - Or the opposite - being so fidgety or restless that you have been moving around a lot more than usual: not at all 9. Thoughts that you would be better off or of hurting yourself in some way: Not at all Total score: 0 If you checked off any problems, how difficult have these problems made it for you to do your work, take care of things at home, or get along with other people?: not difficult at all Source: Developed by Drs. Kolby Meyers, Crystal Quiñones, Dane Vasquez and colleagues, with an educational deisi from [employer]. Depression screen completed yes Social History Living Situation History Housing: House Tobacco History Smoking Status: Never smoker Second Hand Smoke Exposure: No Alcohol History Alcohol Intake: Never Domestic Abuse History Do You Feel Safe at Home: Yes History of Present Illness HPI Narrative 34-year-old 3 para 1 reports for follow-up to [facility]. Patient recently was seen in the ED ED September 29 for complaints of vaginal bleeding and miscarriage. Patient previously had a miscarriage in May of this year as well. Patient denies social habits. Denies surgery. Denies chronic illness. She is taking vitamins now. 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 Patient reports that she has stopped bleeding. Denies any complaints of first trimester discomforts Review of Systems Review of Systems Systems Reviewed: All systems reviewed, normal except as documented Exam Narrative Physical exam: abdomen soft, non tender. no masses. pelvic sono: uterus measured 9cm , endometrial stripe 15mm. General Limitations: no limitations General Appearance: alert, in no apparent distress, comfortable, cooperative, healthy appearing, well developed and well groomed Head Head exam: atraumatic, normocephalic and normal inspection Chest Chest inspection: Present normal inspection and symmetric chest wall rise Resp Respiratory exam: Present normal lung sounds bilaterally Card Cardiovascular exam: Present regular rate, normal rhythm and normal heart sounds Abdominal Abdominal exam: Present soft and normal bowel sounds Psych Psychiatric exam: Present normal affect and normal mood Results Objective Laboratory: hc Imaging: uterus 9 cm, endometrial stripe was 15mm,normal ovaries, no pole,no cardiac motion, no gestational sac Office Procedures OB Clinic LOC & Office Proc's Nursing/Assessment Patient Status: Established Patient OB Clinic Nursing Assessment: Medication Reconciliation, Update PMH in EMR and Vital Signs OB Clinic Coordination of Care: Complex Care and Chronic Disease 1-5, Con sent,records obtained, informed consent, Education Simp Pt/Fam, Lab and Imaging orders and Staff clarify orders Established Patient Charge Established Patient Point Assignment: 100 Established Patient Point Charge: EP Level 3 (80-115) Assessment & Plan Diagnosis / Problem List (1) Complete or unspecified spontaneous without complication: Status: Acute Plan HCG x2, 1 week apart. pelvic sono f/u. continue pNV, discuss spacing. rtc 1 week f/u, ER precaution reviewed Additional Plan Follow Up: 1 Week (f/u [facility])
[2024-10-16 10:10] VITALS: BP 115/77; PULSE 84; RESP 17; TEMP 36.6; O2SAT 99; BMI 28.1
== END 2024-10-16 10:44 | disposition home or self-care (01) ==
PROVIDERS: Supervising Provider Obstetrics & Gynecology; Visit Provider Advanced Practice Midwife
DX: O03.9 Complete or unspecified spontaneous abortion without complication (principal)
CPT/HCPCS: 99213; G0463

== ENCOUNTER 2024-10-25 10:40 | Outpatient (AMB) | payer OTHER, SELFPAY ==
[2024-10-25 10:51] VITALS: BP 120/73; PULSE 83; RESP 18; TEMP 36.2; O2SAT 98; BMI 28.0
--- NOTE | 2024-10-25 10:51 | AMB.OBVISIT ---
Vital Signs 10/25/24 10:51 Height 1.6 m Height Method Stated Weight 71.724 kg Weight Measurement Method Standing Scale BMI 28.0 BP 120/73 Blood Pressure Source Automatic Cuff Blood Pressure Location Left Upper Arm Position Sitting Respiration 18 Pulse 83 Pulse Source Monitor Temp 97.2 F Temp Source Oral Pulse Oximetry (%) 98 Oxygen Delivery Method Room Air Allergies/Home Meds Allergies & Medications Allergies No Known Allergies Allergy (Verified 10/25/24 10:52) Medication Reconciliation ibuprofen 600 mg tablet (IBU) 600 mg PO TID PRN pain #30 tabs 01/04/18 [Rx Confirmed 10/25/24] acetaminophen 500 mg tablet (Tylenol Extra Strength) 500 mg PO Q6H PRN pain #60 tabs 09/22/21 [Rx Confirmed 10/25/24] Intake Visit Data Collection New Patient or Established: Established Patient (seen at [facility] within 3 years) Reason for Visit:: OBC Seen by Clinical Staff ONLY (RN/MA): No 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 1. Little interest or pleasure in doing things: not at all 2. Feeling down, depressed, or hopeless: not at all Total score: 0 PHQ-9 3. Trouble falling or staying asleep, or sleeping too much: Not at all 4. Feeling tired or having little energy: Not at all 5. Poor appetite or overeating: Not at all 6. Feeling bad about yourself - or that you are a failure or have let yourself or your family down: Not at all 7. Trouble concentrating on things, such as reading the newspaper or watching television: Not at all 8. Moving or speaking so slowly that other people could have noticed? - Or the opposite - being so fidgety or restless that you have been moving around a lot more than usual: not at all 9. Thoughts that you would be better off or of hurting yourself in some way: Not at all Total score: 0 If you checked off any problems, how difficult have these problems made it for you to do your work, take care of things at home, or get along with other people?: not difficult at all Source: Developed by Drs. Kolby Meyers, Crystal Quiñones, Dane Vasquez and colleagues, with an educational deisi from [employer]. 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 Patient had been seen September 26 in the ED ED ED for vaginal bleeding after a positive home test. OB sono had showed an empty uterus with no retained products. Patient is not bleeding now. She plans to space for a few months. Denies social habits. Denies surgery. Eyes chronic illness. No other OB complaints Review of Systems Review of Systems Systems Reviewed: All systems reviewed, normal except as documented Results Objective Laboratory: HCG <1, previous hcg was 6 Exam General Limitations: no limitations General Appearance: alert, in no apparent distress, comfortable, cooperative, healthy appearing, well developed and well groomed Head Head exam: atraumatic, normocephalic and normal inspection Resp Respiratory exam: Present normal lung sounds bilaterally Card Cardiovascular exam: Present regular rate, normal rhythm and normal heart sounds Abdominal Abdominal exam: Present soft and normal bowel sounds Psych Psychiatric exam: Present normal affect and normal mood Office Procedures OB Clinic LOC & Office Proc's Nursing/Assessment Patient Status: Established Patient OB Clinic Nursing Assessment: Medication Reconciliation, Update PMH in EMR and Vital Signs OB Clinic Coordination of Care: Education Complex Pt/Fam, Consent,records obtained, informed consent, Results/Orders obtained and Staff clarify orders Special Needs: Heart tones Established Patient Charge Established Patient Point Assignment: 100 Established Patient Point Charge: EP Level 3 (80-115) Assessment & Plan Diagnosis / Problem List (1) Complete or unspecified spontaneous without complication: Status: Acute Plan Discussed results. Continue vitamin and folic acid because patient would like to have another . Discussed spacing and condoms for contraception. And I also discussed taking a low-dose baby aspirin daily. Patient to work on diet and regular exercise. And to return as needed Additional Plan Follow Up: 6 Months (contraception)
== END 2024-10-25 11:40 | disposition home or self-care (01) ==
LOC: HODSOBC 10:40
PROVIDERS: Supervising Provider Advanced Practice Midwife; Visit Provider Advanced Practice Midwife
DX: O03.9 Complete or unspecified spontaneous abortion without complication (principal)
CPT/HCPCS: 99213; G0463